=== PATIENT | female | born 1960 | race Caucasian/White ===

== ENCOUNTER 2017-08-19 04:11 | Emergency (ER) | payer MEDICAID, OTHER ==
[2017-08-19] MEDS: MECLIZINE 12.5 MG TAB PO (05:20)
[2017-08-19 06:33] LABS: TROPONIN-I < 0.012 ng/ml (0.00-0.12)
== END 2017-08-19 06:25 | disposition home or self-care (01) ==
LOC: FTE 04:11
DX: R42 Dizziness and giddiness (principal); F41.9 Anxiety disorder, unspecified
CPT/HCPCS: 84484; 93005; 99284-25